=== PATIENT | female | born 1980 | race Caucasian/White ===

== ENCOUNTER 2017-11-04 21:01 | Emergency (ER) | payer MEDICAID ==
[~2017-11-04] VITALS: Ht 154.9 cm; Wt 70.4 kg
[2017-11-04 21:20] VITALS: BP 140/84
--- NOTE | 2017-11-04 23:11 | NUR ---
PT TO ER BED 1
--- NOTE | 2017-11-04 23:15 | NUR ---
PATIENT PRESENTS TO ED WITH ABDOMINAL PAIN X1 DAY. PATIENT STATES SHE HAS HAD A BURNING, STABBING INTERMITTENT PAIN X1 YEAR. PATIENT STATES 7/10 PAIN. PATIENT DENIES N/V/D. ER MD MADE AWARE OF PATIENT STATUS. WILL CONTINUE TO MONITOR.
[2017-11-05 00:11] LABS: HEMOGLOBIN 13.1 g/dL (12.0-16.0); RED BLOOD CELL COUNT(AUTO) 4.51 MIL/uL (4.20-5.40); WHITE BLOOD COUNT (AUTO) 9.2 K/uL (4.8-10.8)
[2017-11-05 00:11] LABS: APPEARANCE,URINE CLOUDY (CLEAR); BILIRUBIN,URINE NEGATIVE (NEGATIVE); BLOOD, URINE NEGATIVE (NEGATIVE); COLOR,URINE YELLOW (YELLOW); LEUKOCYTE ESTERASE ,URINE NEGATIVE (NEGATIVE); NITRITE, URINE NEGATIVE (NEGATIVE); PH,URINE 5.5 (5.0-9.0); UGLUCOSE NEGATIVE (NEGATIVE)
[2017-11-05 00:12] LABS: HEMATOCRIT 40.3 % (36-48); LYMPHOCYTES % (AUTO) 18.3 % (20.5-51.1); MEAN CORPUSCULAR HEMOGLOBIN 29 pg (27-31); MEAN CORPUSCULAR HGB CONC 33 g/dL (33-37); MEAN CORPUSCULAR VOLUME 89.3 fL (80-94); MONOCYTES % (AUTO) 6.5 % (1.7-9.3); NEUTROPHILS % (AUTO) 72.6 % (42.2-75.2); PLATELET COUNT (AUTO) 172 K/uL (140-450); RED CELL DISTRIBUTION WIDTH 12.5 % (11.6-13.7)
[2017-11-05 00:13] LABS: BASOPHILS # (AUTO) 0.1 K/uL (0.00-0.22); EOSINOPHILS # (AUTO) 0.1 K/uL (0-0.4); EOSINOPHILS % (AUTO) 1.6 % (0.0-4.0); LYMPHOCYTES # (AUTO) 1.7 K/uL (2.5-16.5); MONOCYTES # (AUTO) 0.6 K/uL (0.8-1.0); NEUTROPHILS # (AUTO) 6.7 K/uL (1.8-7.7)
[2017-11-05] MEDS ORDERED: KETOROLAC 15 MG/ML VIAL IM ONE (00:20)
--- NOTE | 2017-11-05 00:23 | NUR ---
PATIENT PENDING DISCHARGE AT THIS TIME
[2017-11-05 00:29] LABS: ANION GAP 11.6 (8-16); CARBON DIOXIDE 26.1 mmol/L (21-32); CREATININE 0.8 mg/dL (0.6-1.3); POTASSIUM 3.7 mmol/L (3.5-5.1)
[2017-11-05 00:37] LABS: ALBUMIN 3.8 g/dL (3.4-5.0); TOTAL BILIRUBIN 0.2 mg/dL (0.0-1.0)
[2017-11-05 00:54] VITALS: BP 118/71
--- NOTE | 2017-11-05 00:54 | NUR ---
Patient discharged with v/s stable. Written and verbal after care instructions given and explained. Patient alert, oriented and verbalized understanding of instructions. Ambulatory with steady gait. All questions addressed prior to discharge. ID band removed. Patient advised to follow up with PMD. Rx of REGLAN, IBUPROFEN, NORCO given. Patient educated on indication of medication including possible reaction and side effects. Opportunity to ask questions provided and answered.
== END 2017-11-05 00:54 | disposition home or self-care (01) ==
LOC: EDBD 21:01 → MED 21:01
DX: K80.50 Calculus of bile duct without cholangitis or cholecystitis without obstruction (principal)
CPT/HCPCS: 36415; 80053; 81003; 81025; 85025; 99284; J1885

== ENCOUNTER 2017-11-10 05:50 | Inpatient (IN) | payer MEDICAID ==
[~2017-11-10] VITALS: Ht 152.4 cm; Wt 68.9 kg
[2017-11-10 06:02] VITALS: BP 134/85
--- NOTE | 2017-11-10 06:05 | NUR ---
TO BED # 3 AMB, REPORT GIVEN TO KUN VIVAS
--- NOTE | 2017-11-10 06:28 | NUR ---
DR HIDALGO AT BEDSIDE EVALUATING PT.
[2017-11-10] MEDS ORDERED: NACL 0.9% 1,000 ML IV SCH ×2 (06:44→10:08)
[2017-11-10] MEDS ORDERED: ONDANSETRON 4 MG/2 ML VIAL IVP ONE (06:45)
[2017-11-10] MEDS ORDERED: MORPHINE SULFATE 4 MG/ML SYR IM ONE (06:45)
[2017-11-10 07:10] LABS: BASOPHILS # (AUTO) 0.1 K/uL (0.00-0.22); BASOPHILS % (AUTO) 1.1 % (0.0-2.0); EOSINOPHILS # (AUTO) 0.1 K/uL (0-0.4); EOSINOPHILS % (AUTO) 1.4 % (0.0-4.0); HEMATOCRIT 41.7 % (36-48); LYMPHOCYTES # (AUTO) 1.7 K/uL (2.5-16.5); LYMPHOCYTES % (AUTO) 19.9 % (20.5-51.1); MEAN CORPUSCULAR HEMOGLOBIN 30 pg (27-31); MEAN CORPUSCULAR HGB CONC 34 g/dL (33-37); MEAN CORPUSCULAR VOLUME 88.8 fL (80-94); MONOCYTES # (AUTO) 0.5 K/uL (0.8-1.0); MONOCYTES % (AUTO) 6.1 % (1.7-9.3); NEUTROPHILS # (AUTO) 6.1 K/uL (1.8-7.7); NEUTROPHILS % (AUTO) 71.5 % (42.2-75.2); PLATELET COUNT (AUTO) 183 K/uL (140-450); RED CELL DISTRIBUTION WIDTH 13.3 % (11.6-13.7); WHITE BLOOD COUNT (AUTO) 8.6 K/uL (4.8-10.8)
[2017-11-10 07:11] LABS: APPEARANCE,URINE CLEAR (CLEAR); BILIRUBIN,URINE NEGATIVE (NEGATIVE); BLOOD, URINE NEGATIVE (NEGATIVE); COLOR,URINE YELLOW (YELLOW); LEUKOCYTE ESTERASE ,URINE NEGATIVE (NEGATIVE); NITRITE, URINE NEGATIVE (NEGATIVE); UGLUCOSE NEGATIVE (NEGATIVE)
--- NOTE | 2017-11-10 07:20 | NUR ---
PT BIB SELF C/O ABD PAIN W/ NAUSEA. ABD IS ROUND, SOFT, NON TENDER, ACTIVE BS X4. PT IS LAYING IN BED, GUARDING ABD, AWAKE AND ALERT. PT STATES PAIN STARTED AT 0300 SUD[address] ONSET. NO VOMITING NOTED SINCE ARRIVAL IN ED. NO PMH, NKDA
[2017-11-10 07:33] LABS: ANION GAP 16.9 (8-16); CARBON DIOXIDE 24.8 mmol/L (21-32); CREATININE 0.8 mg/dL (0.6-1.3); POTASSIUM 3.7 mmol/L (3.5-5.1); TOTAL BILIRUBIN 0.6 mg/dL (0.0-1.0)
--- NOTE | 2017-11-10 07:34 | NUR ---
REPORT GIVEN TO MAKAYLA , TRANSFER OF CARE AT THIS TIME.
[2017-11-10 07:35] LABS: ALBUMIN 4.1 g/dL (3.4-5.0)
--- NOTE | 2017-11-10 08:00 | NUR ---
Pt. resting comfortably in bed, rr even and unlabored. Daughter at bedside. bed in lowest position. iv intact no redness or swelling noted, fluids infusing at appropriate rate. Will continue to monitor.
--- NOTE | 2017-11-10 08:53 | NUR ---
Pt. resting comfortably in bed , rr even and unlabored. Bed in lowest position. Will continue to monitor.
[2017-11-10] MEDS ORDERED: PIPERACILLIN/TAZOBACTAM 3.375 GM in DEXTROSE 5% 50 ML IV ONE (09:30)
[2017-11-10] MEDS ORDERED: PIPERACILLIN/TAZOBACTAM 3.375 GM VIAL IV ONE (09:40)
--- NOTE | 2017-11-10 10:02 | NUR ---
PT. IS RESTING IN BED, AMBULATED TO RESTROOM W/ STEADY GAIT, DENIES ANY DIZZYNESS. RR EVEN AND UNLABORED. WILL CONTINUE TO MONITOR.
[2017-11-10] MEDS ORDERED: ONDANSETRON 4 MG/2 ML VIAL IM/IVP PRN (10:10)
[2017-11-10] MEDS ORDERED: ACETAMINOPHEN 325 MG TAB PO PRN (10:10)
[2017-11-10] MEDS ORDERED: LORazepam 2 MG/ML VIAL IM/IVP PRN (10:10)
[2017-11-10] MEDS ORDERED: ZOLPIDEM 5 MG TAB PO PRN (10:10)
[2017-11-10] MEDS ORDERED: DOCUSATE SODIUM 100 MG GELCAP PO PRN (10:10)
[2017-11-10 10:45] LABS: PROTHROMBIN TIME 9.9 secs (10.8-13.4)
--- NOTE | 2017-11-10 10:47 | NUR ---
Patient will be admitted to care of DR. SERVIN . Admited to TELE . Will go to room 112A. Belongings list completed. Report to SANGEETHA BRYAN .
--- NOTE | 2017-11-10 10:47 | NUR ---
RECEIVED PATIENT FROM ED IN STABLE CONDITION. SKIN IS INTACT, PT IS AMBULATORY. NO COMPLAINTS OF PAIN OR DISCOMFORT. DENIES NAUSEA AND VOMITING. IV SITE PATENT, WILL ADMINISTER IVF PER MD ORDERS. ALL SAFETY MEASURES IN PLACE, WILL CONTINUE TO MONITOR.
[2017-11-10 10:51] LABS: CHOL/HDL RATIO 18.2 (1-4.5); MAGNESIUM 2.2 mg/dL (1.8-2.4); THYROID STIMULATING HORMONE 2.14 uIU/mL (0.34-3.74)
[2017-11-10 10:58] LABS: BARBITURATE, URINE NEGATIVE ng/ml (NEG <=200); BENZODIAZEPINE, URINE NEGATIVE ng/mL (NEG <=200); CANNABINOID, URINE NEGATIVE ng/mL (NEG <=50); COCAINE, URINE NEGATIVE ng/mL (NEG <=300); OPIATE, URINE NEGATIVE ng/mL (NEG <=2000); PHENCYCLIDINE SCREEN,URINE NEGATIVE ng/mL (NEG <=25)
[2017-11-10 11:18] LABS: PHOSPHORUS 2.1 mg/dL (2.5-4.9)
--- NOTE | 2017-11-10 11:28 | NUR ---
IVF ADMINISTERED AT THIS TIME.
[2017-11-10 12:00] VITALS: BP 103/72
--- NOTE | 2017-11-10 13:30 | NUR ---
FAMILY MEMBER AT BEDSIDE. NO COMPLAINTS OF PAIN OR NAUSEA. WILL CONTINUE TO MONITOR.
--- NOTE | 2017-11-10 15:00 | NUR ---
PER DR. PEREZ, PT CAN HAVE FULL LIQUIDS TODAY AND WILL BE NPO AFTER MIDNIGHT.
[2017-11-10 16:00] VITALS: BP 105/67
--- NOTE | 2017-11-10 16:10 | NUR ---
DR. PEREZ HERE TO SEE PATIENT. PATIENT AGREES TO PROCEDURE TOMORROW MORNING: LAP RAFAEL, POSSIBLE OPEN RAFAEL, POSSIBLE BLOOD TRANSFUSION. CONSENT IN CHART. [employer] USED.
--- NOTE | 2017-11-10 18:00 | NUR ---
PT IN STABLE CONDITION. NO COMPLAINTS OF PAIN OR DISCOMFORT. WILL CONTINUE TO MONITOR.
--- NOTE | 2017-11-10 19:15 | NUR ---
ENDORSED PLAN OF CARE TO POST ADOPTION COORDINATOR RN. PT IN STABLE CONDITION.
--- NOTE | 2017-11-10 19:16 | NUR ---
REPORT RECEIVED FROM AM NURSE AT BEDSIDE. PT IN STABLE CONDITION. AAOX4. INTRODUCED SELF TO PT. [place]LANDER SPEAKING ONLY. PT IS ON FULL LIQUID DIET UNTIL MIDNIGHT WHERE SHE WILL BE NPO. IV SITE L AC 20G PATENT AND INTACT RUNNING NS AT 60ML/HR. SKIN IS WARM, DRY, AND INTACT WITH NO OPEN WOUNDS. PT HAS LAP OR OPEN RAFAEL WITH DR WILHELM TOMORROW. CONSENT SIGN AND IN CHART. TYPE AND SCREEN DONE. BED LOCKED IN LOW POSITION. CALL PERSAUD WITHIN REACH.
[2017-11-10 20:00] VITALS: BP 102/66
[2017-11-10] MEDS: DEXT 5% / NACL 0.45% 1,000 ML IV SCH (21:01)
--- NOTE | 2017-11-10 21:30 | NUR ---
MD ORDER D5 1/2NS @60ML/HR. DC CASTRO.
--- NOTE | 2017-11-10 23:45 | NUR ---
VS STABLE. PT ASLEEP BUT AROUSABLE. NO S/S OF DISTRESS.
[2017-11-11] VITALS: BP 102/70
--- NOTE | 2017-11-11 03:30 | NUR ---
PT VS STABLE. NO S/S OF DISTRESS. PT SLEEPING COMFORTABLY IN BED. WILL CONTINUE TO MONITOR.
[2017-11-11 04:00] VITALS: BP 110/68
[2017-11-11] MEDS: DEXT 5% / NACL 0.45% 1,000 ML IV SCH (06:26)
[2017-11-11 06:42] LABS: BASOPHILS % (AUTO) 0.6 % (0.0-2.0); EOSINOPHILS # (AUTO) 0.3 K/uL (0-0.4); EOSINOPHILS % (AUTO) 4.7 % (0.0-4.0); HEMATOCRIT 39.3 % (36-48); HEMOGLOBIN 13.3 g/dL (12.0-16.0); LYMPHOCYTES # (AUTO) 1.6 K/uL (2.5-16.5); LYMPHOCYTES % (AUTO) 28.4 % (20.5-51.1); MEAN CORPUSCULAR HEMOGLOBIN 30 pg (27-31); MEAN CORPUSCULAR HGB CONC 34 g/dL (33-37); MEAN CORPUSCULAR VOLUME 89.1 fL (80-94); MONOCYTES # (AUTO) 0.4 K/uL (0.8-1.0); MONOCYTES % (AUTO) 7.5 % (1.7-9.3); NEUTROPHILS # (AUTO) 3.2 K/uL (1.8-7.7); NEUTROPHILS % (AUTO) 58.8 % (42.2-75.2); PLATELET COUNT (AUTO) 168 K/uL (140-450); RED BLOOD CELL COUNT(AUTO) 4.42 MIL/uL (4.20-5.40); RED CELL DISTRIBUTION WIDTH 13.7 % (11.6-13.7); WHITE BLOOD COUNT (AUTO) 5.5 K/uL (4.8-10.8)
--- NOTE | 2017-11-11 07:05 | NUR ---
REPORT GIVEN TO AM NURSE AT BEDSIDE. PT IN STABLE CONDITION.
--- NOTE | 2017-11-11 07:10 | NUR ---
RECEIVED REPORT FROM PEDIATRIC PHYSICAL THERAPY ASSISTANT NURSE, PT IS AAOX4, AMBULATORY, IV IS ON THE LEFT AC, PATENT, INTACT, FLUSHING WELL, PT IS ON ROOM AIR, NO S/S OF RESPIRATORY DISTRESS OR DISCOMFORT NOTED, SAFETY/FALL PRECAUTIONS ARE IN PLACE, CALL LIGHT IS WITHIN REACH, WILL CONTINUE TO MONITOR.
[2017-11-11 07:29] LABS: ANION GAP 13.3 (8-16); CARBON DIOXIDE 25.7 mmol/L (21-32); CREATININE 0.7 mg/dL (0.6-1.3)
[2017-11-11] MEDS ORDERED: BUPIVACAINE-MPF 0.25% 30 ML VIAL INJ ONE (07:39)
[2017-11-11 08:00] VITALS: BP 110/72
[2017-11-11] MEDS ORDERED: DEXAMETHASONE 4 MG/ML VIAL ONE (08:55)
[2017-11-11] MEDS ORDERED: ONDANSETRON 4 MG/2 ML VIAL ONE (08:55)
[2017-11-11] MEDS ORDERED: SEVOFLURANE 250 ML BTL INH ONE (08:55)
[2017-11-11] MEDS ORDERED: GLYCOPYRROLATE 0.2 MG/ML VIAL ONE (08:55)
[2017-11-11] MEDS ORDERED: PIPERACILLIN/TAZOBACTAM 3.375 GM VIAL IV ONE ×2 (08:55→08:57)
[2017-11-11] MEDS ORDERED: PHENYLEPHRINE 10 MG/ML VIAL ONE (08:55)
[2017-11-11] MEDS ORDERED: PROPOFOL 200 MG/20 ML VIAL IV ONE (08:55)
[2017-11-11] MEDS ORDERED: MEPERIDINE 50 MG/ML SYR ONE (08:59)
[2017-11-11] MEDS ORDERED: fentaNYL 0.05 MG/ML VIAL ONE (08:59)
[2017-11-11] MEDS ORDERED: MIDAZOLAM 2 MG/2 ML VIAL ONE (08:59)
[2017-11-11 09:14] LABS: HEPATITIS A ANTIBODY IGM Negative (Negative); HEPATITIS B CORE AB TOTAL Negative (Negative); HEPATITIS B SURFACE ANTIBODY Non Reactive (.); HEPATITIS B SURFACE ANTIGEN Negative (Negative)
[2017-11-11] MEDS ORDERED: ONDANSETRON 4 MG/2 ML VIAL IVP PRN (09:30)
[2017-11-11] MEDS ORDERED: HYDROmorphone 1 MG/ML AMP IVP PRN (09:30)
[2017-11-11] MEDS ORDERED: diphenhydrAMINE 50 MG/ML VIAL IVP PRN (09:30)
[2017-11-11] MEDS ORDERED: MEPERIDINE 25 MG/ML SYR IVP PRN (09:30)
[2017-11-11] MEDS ORDERED: LACTATED RINGERS 1,000 ML IV SCH (09:30)
--- NOTE | 2017-11-11 10:07 | NUR ---
PATIENT HAS BEEN SCREENED AND CATEGORIZED MODERATE NUTRITION RISK. PATIENT WILL BE SEEN WITHIN 3-5 DAYS OF ADMISSION. 11/12/17 -11/14/[address]
[2017-11-11 10:55] VITALS: BP 109/78
--- NOTE | 2017-11-11 10:55 | NUR ---
PT RETURNED TO UNIT, PT IS AAOX4, DROWSY, BUT EASILY AWAKEN, PT HAS 4 ABDOMINAL INCISIONS, NO BLEEDING/DRAINAGE NOTED, NO S/S OF RESPIRATORY DISTRESS OR DISCOMFORT NOTED, CALL LIGHT IS WITHIN REACH, WILL CONTINUE TO MONITOR.
[2017-11-11] MEDS: NACL 0.9% 1,000 ML IV SCH (13:45)
[2017-11-11 16:00] VITALS: BP 116/77
[2017-11-11] MEDS: HYDROcodone/APAP 5/325 MG 1 TAB TAB PO PRN ×2 (19:07→23:14)
--- NOTE | 2017-11-11 19:20 | NUR ---
RECEIVED BEDSIDE REPORT FROM NICHOLE VIVAS DAYSHIFT NURSE FOR CONTINUITY OF CARE. PT IN STABLE CONDITION. SHE IS SITTING UP IN BED AND APPEARS TO BE IN PAIN, PT WAS GIVEN PRN NORCO 5/325.
--- NOTE | 2017-11-11 19:20 | NUR ---
ENDORSED PT TO PARTY HOST/HOSTESS NURSE FOR CONTINUITY OF CARE. PT STABLE AT THIS TIME.
--- NOTE | 2017-11-11 20:00 | NUR ---
PT STATED POSITIVE EFFECT OF PAIN MEDS,PAIN IS 0/10. PT SAID THAT SHE WANTS TO AMBULATE IN THE ALEMAN, USE THE RESTROOM AND GO BACK TO SLEEP. PT WAS UP IN THE ALEMAN WITH AT HER SIDE.
--- NOTE | 2017-11-12 00:30 | NUR ---
PT ASLEEP NO S/S OF PAIN OR DISTRESS NOTED BED IS LOW CALL PERSAUD IN REACH,
[2017-11-12 04:00] VITALS: BP 117/70
[2017-11-12 06:19] LABS: BASOPHILS % (AUTO) 0.3 % (0.0-2.0); EOSINOPHILS # (AUTO) 0.1 K/uL (0-0.4); EOSINOPHILS % (AUTO) 0.4 % (0.0-4.0); HEMATOCRIT 37.3 % (36-48); HEMOGLOBIN 12.4 g/dL (12.0-16.0); LYMPHOCYTES # (AUTO) 1.9 K/uL (2.5-16.5); LYMPHOCYTES % (AUTO) 16.5 % (20.5-51.1); MEAN CORPUSCULAR HEMOGLOBIN 30 pg (27-31); MEAN CORPUSCULAR HGB CONC 33 g/dL (33-37); MEAN CORPUSCULAR VOLUME 89.4 fL (80-94); MONOCYTES # (AUTO) 0.7 K/uL (0.8-1.0); MONOCYTES % (AUTO) 6.2 % (1.7-9.3); NEUTROPHILS # (AUTO) 9.1 K/uL (1.8-7.7); NEUTROPHILS % (AUTO) 76.6 % (42.2-75.2); PLATELET COUNT (AUTO) 174 K/uL (140-450); RED BLOOD CELL COUNT(AUTO) 4.17 MIL/uL (4.20-5.40); RED CELL DISTRIBUTION WIDTH 13.4 % (11.6-13.7); WHITE BLOOD COUNT (AUTO) 11.8 K/uL (4.8-10.8)
--- NOTE | 2017-11-12 07:20 | NUR ---
ENDORSED REPORT TO RICHARD RN NURSE AT BEDSIDE FOR TRANSFER OF CARE, PT IN STABLE CONDITION.
--- NOTE | 2017-11-12 07:21 | NUR ---
RECEIVED BEDSIDE REPORT FROM ELECTRICIAN LOCOMOTIVE NURSE. PATIENT IS AWAKE, ALERT AND ORIENTEDX4. NO SIGNS OF DISTRESS ON ROOM AIR. PATIENT AMBULATES, GAIT IS STEADY. SKIN NON INTACT. S/P LAP RAFAEL 3 INCISIONS. GLUES. CLEAN, DRY AND INTACT. RADAR MECHANIC. IV ON L AC 20G INFUSING NS AT 60. IV IS CLEAN, DRY AND INTACT. NO COMPLAINTS OF PAIN. BED IN LOW POSITION. CALL LIGHT WITHIN REACH. IS FEEDING THE PATIENT. WILL CONTINUE TO MONITOR
[2017-11-12 07:35] LABS: ALBUMIN 3.2 g/dL (3.4-5.0); ANION GAP 12.5 (8-16); CARBON DIOXIDE 26.1 mmol/L (21-32); CREATININE 0.8 mg/dL (0.6-1.3); POTASSIUM 3.6 mmol/L (3.5-5.1); TOTAL BILIRUBIN 0.4 mg/dL (0.0-1.0)
--- NOTE | 2017-11-12 08:00 | NUR ---
GAVE PATIENT PRUNE JUICE AND APPLE JUICE TO HELP HER USE THE RESTROOM. BED IN LOW POSITION. CALL LIGHT WITHIN REACH
--- NOTE | 2017-11-12 09:00 | NUR ---
PATIENT AMBULATING AROUND THE HALLS. GAIT IS STEADY.
[2017-11-12] MEDS: NACL 0.9% 1,000 ML IV SCH (09:52)
[2017-11-12] MEDS ORDERED: DOCU-299 PO (10:13)
[2017-11-12] MEDS ORDERED: ACET-9525 PO (10:13)
--- NOTE | 2017-11-12 11:00 | NUR ---
PATIENT SITTING IN BED. NO SIGNS OF DISTRESS. BED IN LOW POSITION. WILL CONTINUE TO MONITOR THE PATIENT,
--- NOTE | 2017-11-12 13:40 | NUR ---
EDUCATED PATIENT ON DISEASE PROCESS, ABN S/SX AND WHEN TO GO TO THE NEAREST ER, FOLLOW UP W DR PEREZ, GAVE HIS NUMBER AND ADDRESS TO HIS OFFICE, HOW TO CLEANSE WOUNDS AND ABN S/SX, EDUCATED ON MEDS, GAVE PRESCRIPTIONS. TOOK A PHOTO OF WOUNDS. REMOVED IV, IV TIP IS INTACT. REMOVED ID BANDS. ALL PAPERWORK SIGNED PATIENT AND FAMILY VERBALIZED UNDERSTANDING. PATIENT LEFT IN WHEELCHAIR IN STABLE CONDITION.
== END 2017-11-12 13:40 | disposition home or self-care (01) | DRG 263 ==
LOC: MED 05:50 → MTU 10:08
PROVIDERS: ADMIT General Practice; ATTEND General Practice
PROC: 0FT44ZZ Resection of Gallbladder, Percutaneous Endoscopic Approach (ICD-10-PCS; principal; 2017-11-11 08:30)
DX: K80.00 Calculus of gallbladder with acute cholecystitis without obstruction (principal); K83.8 Other specified diseases of biliary tract; E66.9 Obesity, unspecified; Z68.29 Body mass index [BMI] 29.0-29.9, adult
CPT/HCPCS: 36415; 76705; 80048; 80053; 80305; 81003; 83036; 83690; 83735; 84100; 84134; 84443; 84703; 85025; 85610; 85730; 86704; 86706; 86708; 86709; 86803; 86886; 86900; 86901; 87081; 87340; 96365; 96375; 99285; C1887; J1100; J2175; J2250; J2270; J2370; J2405; J2543; J2704; J3010; J3490; J7030; Q0092